=== PATIENT | male | born 1990 | race Two or more races ===

== ENCOUNTER 2023-07-22 22:14 | Inpatient (IN) | payer OTHER ==
[2023-07-22 23:44] VITALS: BMI 24.3
[2023-07-23] MEDS ORDERED: LOPERAMIDE HCL 2 MG CAPSULE PO PRN (00:30)
[2023-07-23] MEDS ORDERED: MAGNESIUM HYDROX 2400MG/30ML ORAL SUSPENSION 30 ML CUP PO PRN (00:30)
[2023-07-23] MEDS ORDERED: BENZOCAINE/MENTHOL (CHLORASEPTIC ) LOZENGE MM PRN (00:30)
[2023-07-23] MEDS ORDERED: ONDANSETRON *ODT* 4 MG TABLET SL PRN (00:30)
[2023-07-23] MEDS ORDERED: DICYCLOMINE HCL 10 MG CAPSULE PO PRN (00:30)
[2023-07-23] MEDS ORDERED: ACETAMINOPHEN 325 MG TABLET (FP) PO PRN (00:30)
[2023-07-23] MEDS ORDERED: guaiFENesin 600 MG TABLET.ER (FP) PO PRN (00:30)
[2023-07-23] MEDS ORDERED: NALOXONE HCL (KLOXXADO) 8 MG SPRAY NS PRN (00:30)
[2023-07-23] MEDS ORDERED: BENZONATATE 200 MG CAPSULE PO PRN (00:30)
[2023-07-23] MEDS ORDERED: IBUPROFEN 600 MG TABLET (FP) PO PRN (00:30)
[2023-07-23] MEDS ORDERED: NALOXONE HCL 0.4 MG/ML VIAL IM PRN (00:30)
[2023-07-23] MEDS ORDERED: MAG HYDROX/AL HYDROX/SIMETH 30 ML UNIT-DOSE CUP PO PRN (00:30)
[2023-07-23] MEDS ORDERED: IBUPROFEN 400 MG TABLET (FP) PO PRN (00:30)
[2023-07-23] MEDS ORDERED: NICOTINE POLACRILEX 4 MG GUM BUC PRN (00:30)
[2023-07-23] MEDS ORDERED: POLYETHYLENE GLYCOL (HEALTHYLAX) 3350 17 GM PACKET PO PRN (00:30)
[2023-07-23] MEDS ORDERED: BISMUTH SUBSALICYLATE 524 MG/30 ML PO PRN (00:30)
[2023-07-23] MEDS ORDERED: methaDONE HCL 10 MG TABLET (FOR DETOX USE ONLY) PO ONE ×2 (01:00→10:00)
[2023-07-23] MEDS ORDERED: ALBUTEROL SO4 HFA INHALER IH PRN (02:16)
[2023-07-23] MEDS: METHOCARBAMOL 500 MG TABLET PO PRN ×3 (05:34→22:15)
[2023-07-23] MEDS: hydrOXYzine PAMOATE 25 MG CAPSULE (FP) PO PRN ×4 (05:34→22:15)
[2023-07-23] MEDS: PRENATAL VITAMINS W/ FOLIC ACID TABLET (FP) PO SCH (10:56)
[2023-07-23 11:43] LABS: HEMOGLOBIN 13.6 GM/dL (11.7-16.9); MCH 26.3 pg (25.7-33.7); MCHC 32.4 g/dl (32.0-35.9); MEAN CELL VOLUME 81.2 fl (80-96); MEAN PLT VOLUME 9.6 fl (7.5-11.1); PLATELET COUNT 335 10^3/uL (134-434); RBC 5.18 M/mm3 (4.00-5.60); RDW 14.1 % (11.9-15.9); WHITE BLOOD COUNT 7.6 K/mm3 (4.0-10.0)
[2023-07-23 11:50] LABS: CHLORIDE 110 mmol/L (98-107); POTASSIUM 4.2 mmol/L (3.5-5.1); SODIUM 143 mmol/L (136-145)
[2023-07-23 12:08] LABS: CALCIUM 8.7 mg/dL (8.5-10.1)
[2023-07-23 12:09] LABS: ALBUMIN 3.5 g/dl (3.4-5.0); ANION GAP 6 mmol/L (4-13); BLOOD UREA NITROGEN 10.4 mg/dL (7-18); CO2 27 mmol/L (21-32); GLUCOSE,RANDOM 86 mg/dL (74-106)
[2023-07-23 12:11] LABS: ALK PHOS 68 U/L (45-117); SGPT/ALT 16 U/L (13-61)
[2023-07-23 12:12] LABS: SGOT/AST 9 U/L (15-37)
[2023-07-23 12:13] LABS: BILIRUBIN,TOTAL 0.7 mg/dL (0.2-1); TOT PROT 6.4 g/dl (6.4-8.2)
[2023-07-23] MEDS: cloNIDine HCL 0.1 MG TABLET PO PRN ×2 (14:38→18:59)
[2023-07-23] MEDS ORDERED: SUVOREXANT 10 MG TABLET PO PRN (22:00)
[2023-07-23] MEDS ORDERED: MELATONIN 5 MG TABLETS PO SCH (22:00)
[2023-07-23] MEDS: THIAMINE HCL 100 MG TABLET (FP) PO SCH (22:15)
[2023-07-23 23:52] LABS: PH,URINE 6.5 (5.0-8.0); URINE APPEARANCE CLEAR; URINE BILIRUBIN NEGATIVE (NEGATIVE); URINE COLOR YELLOW; URINE GLUCOSE (UA) NEGATIVE (NEGATIVE); URINE KETONE NEGATIVE (NEGATIVE); URINE LEUK ESTERASE NEGATIVE (NEGATIVE); URINE NITRITE NEGATIVE (NEGATIVE); URINE PROTEIN NEGATIVE (NEGATIVE)
[2023-07-24] MEDS: METHOCARBAMOL 500 MG TABLET PO PRN ×3 (06:49→22:14)
[2023-07-24] MEDS: hydrOXYzine PAMOATE 25 MG CAPSULE (FP) PO PRN ×2 (06:49→15:46)
[2023-07-24] MEDS: PRENATAL VITAMINS W/ FOLIC ACID TABLET (FP) PO SCH (09:56)
[2023-07-24] MEDS: SUVOREXANT 15 MG TABLET PO PRN (22:14)
[2023-07-24] MEDS: THIAMINE HCL 100 MG TABLET (FP) PO SCH (22:15)
[2023-07-25] MEDS: hydrOXYzine PAMOATE 25 MG CAPSULE (FP) PO PRN ×2 (08:43→17:52)
[2023-07-25] MEDS: PRENATAL VITAMINS W/ FOLIC ACID TABLET (FP) PO SCH (09:44)
[2023-07-25] MEDS: METHOCARBAMOL 500 MG TABLET PO PRN ×2 (09:44→22:07)
[2023-07-25] MEDS ORDERED: methaDONE HCL 10 MG TABLET (FOR DETOX USE ONLY) PO ONE (10:00)
[2023-07-25] MEDS: BACITRACIN 0.9 GM PACKET TP SCH ×2 (11:50→22:07)
[2023-07-25] MEDS: SUVOREXANT 15 MG TABLET PO PRN (22:06)
[2023-07-25] MEDS: THIAMINE HCL 100 MG TABLET (FP) PO SCH (22:07)
[2023-07-26] MEDS: hydrOXYzine PAMOATE 25 MG CAPSULE (FP) PO PRN ×2 (09:24→18:47)
[2023-07-26] MEDS: PRENATAL VITAMINS W/ FOLIC ACID TABLET (FP) PO SCH (09:24)
[2023-07-26] MEDS: BACITRACIN 0.9 GM PACKET TP SCH ×2 (09:24→23:43)
[2023-07-26] MEDS: METHOCARBAMOL 500 MG TABLET PO PRN ×2 (09:25→22:18)
[2023-07-26] MEDS: SUVOREXANT 15 MG TABLET PO PRN (22:18)
[2023-07-26] MEDS: THIAMINE HCL 100 MG TABLET (FP) PO SCH (22:18)
[2023-07-27 09:01] VITALS: RESP 16
[2023-07-27] MEDS: PRENATAL VITAMINS W/ FOLIC ACID TABLET (FP) PO SCH (09:50)
[2023-07-27] MEDS: METHOCARBAMOL 500 MG TABLET PO PRN (09:50)
[2023-07-27] MEDS: hydrOXYzine PAMOATE 25 MG CAPSULE (FP) PO PRN (09:50)
[2023-07-27] MEDS: BACITRACIN 0.9 GM PACKET TP SCH (09:50)
[2023-07-27] MEDS ORDERED: methaDONE HCL 10 MG TABLET (FOR DETOX USE ONLY) PO ONE (10:00)
[2023-07-27 13:17] VITALS: BP 154/90; PULSE 93; TEMP 98.2
== END 2023-07-27 14:15 | disposition home or self-care (01) | DRG 773 ==
LOC: YASAS 22:14 → Y6N 07-23 01:16
PROVIDERS: ADMIT Allergy & Immunology; ATTEND Surgery
PROC: HZ2ZZZZ Detoxification Services for Substance Abuse Treatment (ICD-10-PCS; principal; 2023-07-23)
DX: F11.23 Opioid dependence with withdrawal (principal); F12.20 Cannabis dependence, uncomplicated; F17.210 Nicotine dependence, cigarettes, uncomplicated; F19.280 Other psychoactive substance dependence with psychoactive substance-induced anxiety disorder; F19.282 Other psychoactive substance dependence with psychoactive substance-induced sleep disorder; G47.00 Insomnia, unspecified; J45.20 Mild intermittent asthma, uncomplicated; Z28.310 Unvaccinated for COVID-19; Z28.9 Immunization not carried out for unspecified reason
CPT/HCPCS: 36415; 80053; 80307; 81003; 85027; 86780; 87635; 93005; 93010